=== PATIENT | male | born 1995 | race Caucasian/White ===

== ENCOUNTER 2018-11-15 20:48 | Emergency (ER) | payer OTHER ==
[2018-11-15] MEDS ORDERED: NS 1,000 ML IV ONE ×2 (21:37)
[2018-11-15] MEDS ORDERED: FAMOTIDINE 20 MG/2 ML SDV IVP ONE (21:37)
[2018-11-15] MEDS ORDERED: ONDANSETRON 4 MG/2 ML VIAL IVP ONE (21:37)
--- NOTE | 2018-11-15 21:37 | EDPHY ---
H & P Stated Complaint: abd pain x10 hours, N/V/D Time Seen by Provider: 11/15/18 21:42 HPI/ROS: HPI CHIEF COMPLAINT: Nausea, vomiting, diarrhea HISTORY OF PRESENT ILLNESS: 22-year-old male, history of IBS, otherwise healthy presents to the emergency room nausea vomiting and diarrhea. He states he had some upset stomach yesterday with some loose watery diarrhea nonbloody. He had a breakfast burrito this morning but otherwise they need anything else. Throughout the day he has had some abdominal cramping with nausea watery diarrhea no blood. No black stools. No fever no chest pain or shortness of breath. Approximately an hour and half ago he had an episode of vomiting that he states lasted quite a while he describes 1 long episode of multiple episodes of vomiting. At the end of it he saw bright red blood when he vomited this what prompted him to come to the emergency room. He does states since vomiting he feels better. Currently denies any chest pain shortness of breath or significant abdominal pain. Does have a history of IBS. Denies sick contacts. Past Medical History: IBS Past Surgical History: Denies significant surgical history Social History: Denies drugs alcohol tobacco. [employer] student. Family History: Noncontributory ROS REVIEW OF SYSTEMS: 10 Systems were reviewed and negative with the exception of the elements mentioned in the history of present illness. Exam Constitutional triage nursing summary reviewed, vital signs reviewed, awake/ alert. Noted be tachycardic at triage Eyes normal conjunctivae and sclera, EOMI, PERRLA. HENT normal inspection, atraumatic, moist mucus membranes, no epistaxis, neck supple/ no meningismus, no raccoon eyes. Respiratory clear to auscultation bilaterally, normal breath sounds, no respiratory distress, no wheezing. Cardiovascular tachycardia, regular rhythm, no murmur, no edema, distal pulses normal. Gastrointestinal soft, non-tender, no rebound, no guarding, normal bowel sounds, no distension, no pulsatile mass. Genitourinary no CVA tenderness. Musculoskeletal no midline vertebral tenderness, full range of motion, no calf swelling, no tenderness of extremities, no meningismus, good pulses, neurovascularly intact. Skin pink, warm, & dry, no rash, skin atraumatic. Neurologic awake, alert and oriented x 3, AAOx3, moves all 4 extremities equally, motor intact, sensory intact, CN II-XII intact, normal cerebellar, normal vision, normal speech. Psychiatric normal mood/affect. Heme/Lymph/Immune no lymphadenopathy. Differential Diagnosis: Differential diagnosis includes but is not limited to and in no particular order: Reyna-Barone tear, gastritis, peptic ulcer disease , Bowel obstruction, appendicitis, gallbladder disease, diverticulitis, colitis , enteritis, perforated viscus, gastritis, GERD, esophagitis, urinary tract infection, pyelonephritis, kidney stones Medical Decision Making: Plan for this patient IV establishment IV fluid bolus , IV Zofran for nausea IV Pepcid for GI upset, basic blood work, re-evaluate. The patient noted be tachycardic in the 130s upon arrival. Will reassess after fluids. Check H&H. Monitor for further vomiting of blood. Re-evaluation: Source: Patient - Personal History Current Tetanus/Diphtheria Vaccine: Yes - Medical/Surgical History Hx Asthma: No Hx Chronic Respiratory Disease: No Hx Diabetes: No Hx Cardiac Disease: No Hx Renal Disease: No Hx Cirrhosis: No Hx Alcoholism: No Hx HIV/AIDS: No Hx Splenectomy or Spleen Trauma: No Other PMH: anxiety, IBS - Social History Smoking Status: Never smoked Constitutional: Initial Vital Signs Temperature (C) 36.6 C 11/15/18 20:51 Heart Rate 135 H 11/15/18 20:51 Respiratory Rate 18 11/15/18 20:51 Blood Pressure 127/69 H 11/15/18 20:51 O2 Sat (%) 95 11/15/18 20:51 O2 Delivery Mode Room Air Allergies/Adverse Reactions: No Known Allergies Allergy (Unverified 11/15/18 20:53) Home Medications: Medication Instructions Recorded Hyoscyamine Sulfate 11/15/18 Sertraline HCl 11/15/18 Zoloft 100mg (*) 11/15/18 Medical Decision Making - Data Points Laboratory Results: Laboratory Results 11/15/18 21:49 11/15/18 21:49 11/15/18 11/15/18 21:49 21:49 WBC 9.06 10^3/uL 10^3/uL (3.80-9.50) RBC 5.47 10^6/uL 10^6/uL (4.40-6.38) Hgb 17.6 g/dL H g/dL (13.7-17.5) Hct 50.2 % % (40.0-51.0) MCV 91.8 fL fL (81.5-99.8) MCH 32.2 pg pg (27.9-34.1) MCHC 35.1 g/dL g/dL (32.4-36.7) RDW 12.3 % % (11.5-15.2) Plt Count 292 10^3/uL 10^3/uL (150-400) MPV 9.4 fL fL (8.7-11.7) Neut % (Auto) 84.0 % H % (39.3-74.2) Lymph % (Auto) 7.7 % L % (15.0-45.0) [place] % (Auto) 6.5 % % (4.5-13.0) Eos % (Auto) 1.2 % % (0.6-7.6) Baso % (Auto) 0.2 % L % (0.3-1.7) Nucleat RBC Rel Count 0.0 % % (0.0-0.2) Absolute Neuts (auto) 7.60 10^3/uL H 10^3/uL (1.70-6.50) Absolute Lymphs (auto) 0.70 10^3/uL L 10^3/uL (1.00-3.00) Absolute Monos (auto) 0.59 10^3/uL 10^3/uL (0.30-0.80) Absolute Eos (auto) 0.11 10^3/uL 10^3/uL (0.03-0.40) Absolute Basos (auto) 0.02 10^3/uL 10^3/uL (0.02-0.10) Absolute Nucleated RBC 0.00 10^3/uL 10^3/uL (0-0.01) Immature Gran % 0.4 % % (0.0-1.1) Immature Gran # 0.04 10^3/uL 10^3/uL (0.00-0.10) Sodium 139 mEq/L mEq/L (135-145) Potassium 3.8 mEq/L mEq/L (3.5-5.2) Chloride 109 mEq/L mEq/L (97-110) Carbon Dioxide 20 mEq/l L mEq/l (22-31) Anion Gap 10 mEq/L mEq/L (6-14) BUN 20 mg/dL mg/dL (7-23) Creatinine 0.9 mg/dL mg/dL (0.7-1.3) Estimated GFR > 60 Glucose 105 mg/dL H mg/dL (70-100) Calcium 9.8 mg/dL mg/dL (8.5-10.4) Total Bilirubin 1.0 mg/dL mg/dL (0.1-1.4) Conjugated Bilirubin 0.3 mg/dL mg/dL (0.0-0.5) Unconjugated Bilirubin 0.7 mg/dL mg/dL (0.0-1.1) AST 21 IU/L IU/L (17-59) ALT 48 IU/L IU/L (21-72) Alkaline Phosphatase 94 IU/L IU/L (38-126) Total Protein 7.7 g/dL g/dL (6.3-8.2) Albumin 4.9 g/dL g/dL (3.5-5.0) Lipase 24 IU/L IU/L (23-300) Medications Given: Discontinued Medications Famotidine (Pepcid) 20 mg IVP EDNOW ONE Stop: 11/15/18 21:38 Last Admin: 11/15/18 21:58 Dose: 20 mg Sodium Chloride (Ns) 1,000 mls @ 0 mls/hr IV EDNOW ONE; Wide Open PRN Reason: Protocol Stop: 11/15/18 21:38 Last Admin: 11/15/18 21:58 Dose: 1,000 mls Sodium Chloride (Ns) 1,000 mls @ 0 mls/hr IV EDNOW ONE; Wide Open PRN Reason: Protocol Stop: 11/15/18 21:38 Last Admin: 11/15/18 22:04 Dose: 1,000 mls Ondansetron HCl (Zofran) 4 mg IVP EDNOW ONE Stop: 11/15/18 21:38 Last Admin: 11/15/18 21:58 Dose: 4 mg Departure - Departure Disposition: Home, Routine, Self-Care Clinical Impression: Vomiting and diarrhea Condition: Good Instructions: Acute Nausea and Vomiting (ED), Acute Diarrhea (ED) Additional Instructions: 1. [place] diet over the next 24-48 hours. 2. No spicy fatty greasy foods. No alcohol. 3. Return emergency room if you have worsening abdominal pain, fever, vomiting. Referrals: CATHRYN TAY [Other] - As per Instructions
[2018-11-15 22:00] LABS: PLATELET COUNT 292 10^3/uL (150-400)
[2018-11-16 01:06] VITALS: BP 119/71
== END 2018-11-16 01:04 | disposition home or self-care (01) ==
DX: R11.2 Nausea with vomiting, unspecified (principal); R19.7 Diarrhea, unspecified; E86.9 Volume depletion, unspecified
CPT/HCPCS: 96374; J2405